=== PATIENT | female | born 1980 | race Caucasian/White ===

== ENCOUNTER 2019-04-03 01:08 | Day surgery (SDC) | payer MEDICARE, MEDICAID, SELFPAY ==
[2019-03-22 15:43] VITALS: BMI 46.3
--- NOTE | 2019-04-03 08:04 | WPDANESEPPF ---
Anes - Initial Pre Proc Eval Procedure: Operation Date: 04/03/19 09:30 Proposed Procedures p Hysteroscopy Dilation and Curettage, Polypectomy - Carlitos Ann MD Date/Time: 04/03/19 08:04 Surgeon: Carlitos Ann MD Pre Op Diagnosis: Uterine Polyp Patient Data Age: 38 Gender: F Height: 5 ft 4 in Weight: 122.47 kg Allergies Allergy/AdvReac Type Severity Reaction Status Date / Time azithromycin Allergy SWELLING, Verified 03/22/19 15:44 HIVES piperacillin [From Zosyn] Allergy SWELLING, Verified 03/22/19 15:44 HIVES tazobactam [From Zosyn] Allergy SWELLING, Verified 03/22/19 15:44 HIVES Home Medications Medication Instructions Recorded Confirmed Type adalimumab [Humira(CF) Pen] 40 mg SUBCUT [id number] 03/22/19 03/22/19 History allopurinol 100 mg PO QPM 03/22/19 03/22/19 History alprazolam 1 mg PO Q8H PRN 03/22/19 03/22/19 History azathioprine 50 mg PO QPM 03/22/19 03/22/19 History doxycycline hyclate 100 mg PO BID PRN 03/22/19 03/22/19 History famotidine 40 mg PO QPM 03/22/19 03/22/19 History fluoxetine 60 mg PO HS 03/22/19 03/22/19 History hydrocodone-acetaminophen 1 tablet PO Q6H PRN 03/22/19 03/22/19 History lamotrigine 400 mg PO HS 03/22/19 03/22/19 History meloxicam 15 mg PO QPM 03/22/19 03/22/19 History montelukast 10 mg PO QPM 03/22/19 03/22/19 History omeprazole 40 mg PO QPM 03/22/19 03/22/19 History 21-iron fu-folic acid 1 tablet PO QPM 03/22/19 03/22/19 History [ Complete] sulfasalazine 1,000 mg PO BID 03/22/19 03/22/19 History triamcinolone acetonide 1 applic TOPICAL DIRECTED PRN 03/22/19 03/22/19 History Patient hx anesthesia problems: post op nausea/vomiting Family hx anesthesia problems: none PMFSH Past Medical History Medical History Bipolar disease, chronic Crohn's disease Morbid obesity TIA (obstructive sleep apnea) Anes - Eval Final PreProcedure Day of Procedure 04/03/19 08:04 Patient weight: morbidly obese Heart: regular rate and rhythm Lungs: decreased breath sounds Airway: Mallampati scale class II Neurological: alert and oriented Last oral intake: >/= 8 hours ASA classification: III Emergent: no Anesthetic plan: proceed Anesthesia type and monitoring: general GIVS and standard monitoring Informed Consent: The patient's anesthetic plan and its attendant risks and benefits were discussed with the patient/family/POA. Questions were solicited and answers provided to the satisfaction of the patient/family/POA.
[2019-04-03] MEDS: LACTATED RINGERS 1,000 ML 30 ML IV CONT ×2 (08:25→10:50)
[2019-04-03] MEDS: IBUPROFEN IV 800 MG/200 ML 800 MG/200 ML BAG 400 MG IVPB (08:30)
[2019-04-03 08:34] VITALS: BP 166/94; PULSE 72; RESP 20; TEMP 37.1; O2SAT 97
--- NOTE | 2019-04-03 09:55 | WPDHPUPDATE1 ---
History and Physical Update Update Date/Time: 04/03/19 09:55 History and Physical has been reviewed, including an updated exam of the patient. There are NO changes in the patient's condition. Risks, benefits, and alternatives have been discussed and questions answered. Patient agrees to proceed with procedure.
[2019-04-03 10:49] VITALS: BP 146/95; PULSE 82; RESP 22; O2SAT 93
--- NOTE | 2019-04-03 11:14 | PM.PROC ---
Procedure Note - Detailed Date of procedure: 04/03/19 Pre-op diagnosis: Uterine Polyp Post-op diagnosis: same (Multiple uterine polyps) Procedure performed: Hysteroscopy D&C Description of procedure: The patient was taken the operating room. She was prepped and draped in the dorsal lithotomy position after induction of mac anesthesia. A speculum was placed in the vagina. The cervix was grasped with a tenaculum. The cervix was injected at 3 and 9:00 a.m. with 1% lidocaine. The hysteroscope was inserted the intrauterine cavity in the below findings were noted. The IUD was removed using a ring forceps. The the endometrium was then curettage with a medium-sized curette. All surfaces were curettage. The hysteroscope was reinserted to determine there was adequate removal of tissue. The tenaculum was removed. The speculum was removed. The patient was taken recovery room in stable condition. Sponge lap and needle counts were correct x2. She tolerated the procedure well. Anesthesia: MAC Surgeon: Carlitos Ann MD Estimated blood loss (mL): 50 Drains: No Packing: No Pathology: yes Complications: No immediate complications Condition: stable Disposition: PACU Findings: Many frond the like projections from the endometrial surface. The had the appearance of a mini small endometrial polyps. There was some vascularity to these polyps and the surface material. Otherwise it was normal vulva vagina and cervix. There was 1 endometrial polyp the stent out is larger than the others. It was about 1.5 cm.
[2019-04-03 11:15] VITALS: BP 191/89; PULSE 70
[2019-04-03 11:30] VITALS: BP 171/87; PULSE 77
[2019-04-03] MEDS: SCOPOLAMINE 1.5 MG PATCH TRANSDERM (11:46)
[2019-04-03 12:00] VITALS: BP 165/93; PULSE 74
[2019-04-03 12:30] VITALS: BP 168/90; PULSE 75
== END 2019-04-03 12:41 | disposition home or self-care (01) ==
PROVIDERS: PCP Emergency Medicine; Visit Provider Obstetrics & Gynecology
PROC: 0U5B8ZZ Destruction of Endometrium, Via Natural or Artificial Opening Endoscopic (ICD-10-PCS; CPT 58563; principal; 2019-04-03 09:30)
DX: N84.0 Polyp of corpus uteri (principal); G47.33 Obstructive sleep apnea (adult) (pediatric); K50.90 Crohn's disease, unspecified, without complications; F31.9 Bipolar disorder, unspecified; E66.01 Morbid (severe) obesity due to excess calories; Z68.42 Body mass index [BMI] 45.0-49.9, adult
CPT/HCPCS: 58558; 88300; 88305; A9270; J1100; J1200; J1741; J2250; J2405; J2704; J3010; J7030; J7120

== ENCOUNTER 2024-04-26 14:08 | Outpatient (CLI) | payer MEDICARE, MEDICAID, SELFPAY ==
--- NOTE | ~2024-04-26 | MR_ITS ---
EXAMINATION: MR lumbar spine wo con DATE: 04/26/2024 14:41 INDICATION: Low back pain. TECHNIQUE: Magnetic resonance imaging (MRI) of the lumbar spine was performed without intravenous con trast. Sequences included sagittal T2-weighted FSE, sagittal T2-weighted FS FSE, sagittal T1-weighted FSE, and axial T2-weighted FSE. COMPARISON: None FINDINGS: There is 6 degrees levocurvature of lumbar spine. There is 3 mm retrolisthesis of L1 on L2. There is mild chronic anterior wedging of T12-L2 vertebral bodies associated with Schmorl's nodes. T here is mildly decreased disc height at T11-T12 and T12-L1, moderately decreased disc height at L1-L2 , mildly decreased disc height at L2-L3, L3-L4, and L4-L5, and severely decreased disc height at L5-S 1. The distal spinal cord signal intensity is normal. The conus medullaris is at L1-L2. The following disc levels are specifically discussed: L1-L2: The disc is bulging. There is mild bilateral facet joint osteoarthritis. There is mild bilater al neural foraminal stenosis. There is mild central canal stenosis. L2-L3: The disc is bulging There is mild bilateral facet joint osteoarthritis. There is mild bilatera l neural foraminal stenosis. There is mild central canal stenosis. L3-L4: The disc is bulging. There is mild bilateral facet joint osteoarthritis. There is mild bilater al neural foraminal stenosis. There is mild central canal stenosis. L4-L5: The disc is bulging and has an annular fissure. There is severe bilateral facet joint osteoart hritis. There is an 8 mm synovial cyst from the right facet joint. There is mild bilateral neural for aminal stenosis. There is mild central canal stenosis. L5-S1: The disc is bulging and has an annular fissure. There is severe bilateral facet joint osteoart hritis. There is moderate bilateral neural foraminal stenosis. There is mild central canal stenosis. IMPRESSION: 1. Severe lumbar spondylosis. Reviewed, dictated and finalized at location L.
== END 2024-04-26 14:09 | disposition home or self-care (01) ==
PROVIDERS: PCP Emergency Medicine; Visit Provider Emergency Medicine
DX: M43.06 Spondylolysis, lumbar region (principal)
CPT/HCPCS: 72148